=== PATIENT | male | born 1995 | race Hispanic/Latino ===

== ENCOUNTER 2021-02-15 19:54 | Emergency (ER) | payer OTHER ==
--- NOTE | 2021-02-15 20:57 | RAD REPORT ---
EXAM DESCRIPTION: RAD - Elbow Right 3 View - 02/15/2021 8:39 pm CLINICAL HISTORY: Pain;Swelling COMPARISON: <Comparisons> FINDINGS: No fracture or dislocation is seen.
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
[2021-02-15 23:08] VITALS: TEMP 99; O2SAT 100
[2021-02-15 23:10] VITALS: BP 114/71
== END 2021-02-15 23:03 | disposition home or self-care (01) ==
LOC: ER 19:54
DX: S50.01XA Contusion of right elbow, initial encounter (principal)
CPT/HCPCS: 99283